=== PATIENT | male | born 1960 | race Caucasian/White ===

== ENCOUNTER 2020-02-10 07:22 | Outpatient (CLI) | payer OTHER ==
[2020-02-11 16:49] LABS: SARS-CoV-2 MS2 Positive; SARS-CoV-2 N Gene Negative; SARS-CoV-2 S Gene Negative; SARS-CoV-2 orf1ab Negative
== END 2020-02-10 07:23 | disposition home or self-care (01) ==
LOC: LABBT 07:22
PROVIDERS: ATTEND Student in an Organized Health Care Education/Training Program
DX: Z01.818 Encounter for other preprocedural examination (principal); Z11.59 Encounter for screening for other viral diseases; J34.2 Deviated nasal septum; J34.3 Hypertrophy of nasal turbinates; G47.33 Obstructive sleep apnea (adult) (pediatric); R06.83 Snoring; J34.89 Other specified disorders of nose and nasal sinuses
CPT/HCPCS: 87635; 93005; 93010; U0003

== ENCOUNTER 2020-02-14 06:01 | Day surgery (SDC) | payer OTHER ==
[2020-02-10 13:45] VITALS: BMI 28.7
[2020-02-14] MEDS ORDERED: AFRIN NASAL MIST 15 ML BOT ONE ×2 (06:35→06:40)
[2020-02-14] MEDS ORDERED: EPINEPHrine 1 MG/ML AMP ONE (06:40)
[2020-02-14] MEDS ORDERED: Bacitracin Zinc Ointment 30 gm TUBE ONE (06:40)
[2020-02-14] MEDS ORDERED: Lidocaine 1% w/Epinephrine 1:100K 20 ML VIAL ONE (06:40)
[2020-02-14] MEDS ORDERED: Fentanyl 100 MCG/2 ML VIAL ONE ×2 (07:51→10:25)
[2020-02-14] MEDS ORDERED: Midazolam HCl 2 mg/2 ml Vial ONE (07:51)
[2020-02-14] MEDS ORDERED: Ondansetron PF 4 MG/2 ML Vial ONE (09:55)
[2020-02-14] MEDS ORDERED: Rocuronium Bromide 10 MG/ML (10ML VIAL) ONE (09:55)
[2020-02-14] MEDS ORDERED: Glycopyrrolate 0.2 MG/ML 5 ML SYRINGE ONE (09:55)
[2020-02-14] MEDS ORDERED: PHENYLEPHRINE-NS 100 MCG/ML 10 ML SYRINGE ONE (09:55)
[2020-02-14] MEDS ORDERED: Dexamethasone 20 MG/5 ML VIAL ONE (09:55)
[2020-02-14] MEDS ORDERED: PROPOFOL 200 MG/20 ML VIAL ONE (09:55)
[2020-02-14] MEDS ORDERED: EPHEDRINE 25 MG/5 ML SYRINGE ONE (09:55)
[2020-02-14] MEDS ORDERED: Succinylcholine Chloride 20 MG/ML 10 ml SYRINGE FS ONE (09:55)
[2020-02-14] MEDS ORDERED: Lidocaine 1% PF 5 ML VIAL ONE (09:55)
[2020-02-14] MEDS ORDERED: hydrALAZINE 20 MG/ML VIAL ONE (10:28)
[2020-02-14] MEDS ORDERED: HYDROcodone/Acetaminophen 5/325 mg Tablet ONE (12:57)
--- NOTE | 2020-02-15 11:19 | OP ---
DATE OF PROCEDURE: 02/14/2020 PREOPERATIVE DIAGNOSES: Septal deviation, turbinate hypertrophy and nasal valve collapse. POSTOPERATIVE DIAGNOSES: Septal deviation, turbinate hypertrophy and nasal valve collapse. PROCEDURES: Septoplasty, submucosal resection of inferior turbinates, and reconstruction of nasal valves. PERMIT: Procedures, benefits and risks including those of bleeding, infection, injury, anesthesia, allergic reaction, scarring necessitating revision or repair and alternatives were reviewed with the patient and family who expressed understanding of the information. A consent form was signed and witnessed and a paper copy of the consent form is available for review in the paper chart. INDICATIONS: Patient presenting to clinic with exam findings of septal deviation, turbinate hypertrophy and severe nasal valve collapse causing persistent nasal congestion and difficulty breathing, which was recalcitrant to medical management and is now brought to the operating room for operative treatment. ASSISTANTS: None. FINDINGS: Severe septal deviation with septal spurs, turbinate hypertrophy and nasal valve collapse. DESCRIPTION OF OPERATION: The patient was brought to the operating room and laid supine on the operating room table. General endotracheal anesthesia was administered and the septum was infiltrated with 1% lidocaine with 1:100,000 epinephrine and 6 Afrin-soaked cottonoids were placed in the bilateral nasal cavities, 3 on each side. The patient was then prepped and draped in a usual fashion. The nose was then evaluated endoscopically. The patient was seen to have a severe septal deviation and septal spurs. At this point, a left Eldridge incision was made followed by elevation of the mucoperichondrial flaps with a combination of a 15 blade, Ryan elevator and the [place]. The cartilaginous aspect of the septum was incised anteriorly, taking care to leave at least a 1.5 cm margin from the anterior septal border. Incision was made along the cartilage and the contralateral mucoperichondrial flap was then elevated as well. At this point, the swivel knife was used to remove the deviated cartilaginous portion of the nasal septum and then evaluation of the bony septum was seen and showed deviation causing obstruction. Double-action scissors were used to cut both superiorly and inferiorly and Alexey's were used to remove the deviated aspects of the septum. The nose was then carefully analyzed bilaterally and it was clear that there was no obstruction from deviation and the remaining cartilaginous portions of the septum that were straight were replaced and a quilting mattress suture was then used to replace the mucoperichondrial flaps together with 4-0 chromic suture on a Deepak needle and the Wil incision was then closed in a running fashion with a 5-0 chromic suture. Next, attention was turned to the bilateral inferior turbinate reductions, which were then performed. Next, a stab incision was made along the anterior inferior head of each inferior turbinates followed by elevation with an elevator. An oscillating debrider was then placed in the pocket and used to remove the erectile tissue from inside the inferior turbinates on both sides thus reducing the size of the inferior turbinates bilaterally. After this was performed, both inferior turbinates were then lateralized and outfractured using a Rowland elevator. At this point, attention was turned to the nasal valve reconstruction. Bilateral nasal valve stenosis and collapse were observed with the endoscope. The left nasal ala was stabilized with a double-prong skin hook and an implant was inserted into the left internal nasal wall at the level of the nasal vibrissae. An implant was then inserted deep to the cartilaginous structures of the nasal ala and the left nasal sidewall and seated superiorly laterally to the nasal bone edge to anchor the left nasal sidewall and prevent collapse. The implant was seated well and palpation of the nasal wall showed good position of the implant. Attention was then turned to the right side and the same procedure was performed. The right nasal ala was stabilized with a double-prong skin hook and an implant was inserted into the right internal nasal wall at the level of the nasal vibrissae. The implant was inserted deep to the cartilaginous structures of the nasal ala and the right nasal sidewall and seated superior lateral to the nasal bone edge to anchor the nasal sidewall and prevent collapse. The implant was seated well and palpation of the nasal wall showed good position of the implant. At this point, the nasal cavity and nose were evaluated with the endoscope and it was clear that there was no deviation or obstruction. Bilateral Ko splints were placed and held with a 2-0 silk suture on the anterior septum. The endoscopes were used to evaluate and showed that the Ko splints were in good place. The patient tolerated the procedure well without complications and the patient was turned back to Anesthesia for emergence. Job ID: [id number]
== END 2020-02-14 13:28 | disposition home or self-care (01) ==
LOC: SDC 06:01
PROVIDERS: ATTEND Student in an Organized Health Care Education/Training Program
DX: J34.2 Deviated nasal septum (principal); J34.3 Hypertrophy of nasal turbinates; J34.89 Other specified disorders of nose and nasal sinuses; G47.33 Obstructive sleep apnea (adult) (pediatric); Z79.899 Other long term (current) drug therapy; Z88.8 Allergy status to other drugs, medicaments and biological substances
CPT/HCPCS: J0171; J0360; J1100; J2001; J2250; J2405; J2704; J3010

== ENCOUNTER 2023-05-18 09:32 | Emergency (ER) | payer BC, OTHER ==
[2023-05-18] MEDS ORDERED: Iopamidol-370 76% 500 ML MDV (1 ML CHARGE) ONE (09:49)
[2023-05-18] MEDS ORDERED: Ondansetron PF 4 MG/2 ML Vial ONE (10:43)
[2023-05-18 10:45] LABS: #Eosinphils 0.1 thou/uL (0.0-0.7); #Monocytes 1.1 thou/uL (0.11-0.59); #Neutrophils 8.5 thou/uL (1.40-6.50); %Basophils 0.2 % (0.0-1.0); %Eosinophils 0.7 % (0.0-10.0); %Monocytes 10.1 % (0.0-10.0); %Neutrophils 76.7 % (42.0-75.0); Hematocrit 48.9 % (42.0-52.0); Hemoglobin 16.4 g/dL (14.0-18.0); Mean Corpuscular HGB CONC 33.5 g/dL (32.0-36.0); Mean Corpuscular Hemoglobin 30.5 pg (27.0-31.0); Mean Corpuscular Volume 91.1 fl (78.0-98.0); Mean Platelet Volume 11.7 fL (7.4-10.4); Platelet Count 186 10x3/uL (130-400); Red Blood Cell (RBC) Count 5.37 mill/uL (4.70-6.10)
[2023-05-18] MEDS ORDERED: Dexamethasone 10 MG/ML VIAL ONE ×2 (10:45→10:51)
[2023-05-18 11:13] LABS: ALT (SGPT) 15 U/L (8-55); AST (SGOT) 18 U/L (5-34); Albumin 4.3 g/dL (3.4-4.8); Alkaline Phosphatase 72 U/L (40-110); Anion Gap 11 mmol/L (10-20); BUN (Urea Nitrogen) 13 mg/dL (8.4-25.7); Bilirubin, Total 0.8 mg/dL (0.2-1.2); Calc. Creatinine Clearance 0 mL/min (70-130); Calcium 9.3 mg/dL (7.8-10.44); Carbon Dioxide 27 mmol/L (23-31); Chloride 104 mmol/L (98-107); Estimated GFR 55; Globulin 3.4 g/dL (2.4-3.5); Glucose 114 mg/dL (80-115); Protein, Total 7.7 g/dL (5.8-8.1); Sodium 138 mmol/L (136-145)
== END 2023-05-18 15:25 | disposition home or self-care (01) ==
LOC: ERS 09:32
DX: U07.1 COVID-19 (principal); I10 Essential (primary) hypertension
CPT/HCPCS: 36415; 70491; 71045; 71275; 80053; 85025; 96374; 96375; J1100; J2405; Q9967

== ENCOUNTER 2023-09-21 13:45 | Outpatient (CLI) | payer OTHER | END 2023-09-21 13:46 | disposition home or self-care (01) | LOC: ULT 13:45 | PROVIDERS: ATTEND Chiropractor | DX: Z48.812 Encounter for surgical aftercare following surgery on the circulatory system (principal); Z95.1 Presence of aortocoronary bypass graft; I08.1 Rheumatic disorders of both mitral and tricuspid valves | CPT/HCPCS: 93306 ==

== ENCOUNTER 2024-01-28 14:02 | Outpatient (CLI) | payer OTHER | END 2024-01-28 14:03 | disposition home or self-care (01) | LOC: BICULT 14:02 | PROVIDERS: ATTEND Urology | DX: N28.9 Disorder of kidney and ureter, unspecified (principal); N39.43 Post-void dribbling | CPT/HCPCS: 76770 ==

== ENCOUNTER 2024-07-13 12:39 | Outpatient (CLI) | payer OTHER ==
[2024-07-13 13:46] LABS: #Basophils 0.03 10x3/uL (0.0-0.2); %Basophils 0.4 % (0.0-1.0); %Eosinophils 3.1 % (0.0-10.0); %Lymphocytes 28.2 % (21.0-51.0); %Monocytes 7.6 % (0.0-10.0); %Neutrophils 60.4 % (42.0-75.0); Hematocrit 53.3 % (42.0-52.0); Hemoglobin 17.7 g/dL (14.0-18.0); Mean Corpuscular HGB CONC 33.2 g/dL (32.0-36.0); Mean Corpuscular Hemoglobin 32.6 pg (27.0-31.0); Mean Corpuscular Volume 98.2 fL (78.0-98.0); Mean Platelet Volume 11.4 fL (7.4-10.4); Platelet Count 179 10x3/uL (130-400); RBC Distribution Width 12.9 % (11.5-14.5); Red Blood Cell (RBC) Count 5.43 mill/uL (4.70-6.10)
[2024-07-13 14:07] LABS: PTT 35.1 sec (22.9-36.1); Prothrombin Time 13.6 sec (12.0-14.7)
[2024-07-13 14:09] LABS: Anion Gap 15 mmol/L (10-20); BUN (Urea Nitrogen) 21 mg/dL (8.4-25.7); Calc. Creatinine Clearance 0 mL/min (70-130); Calcium 9.5 mg/dL (7.8-10.44); Carbon Dioxide 25 mmol/L (23-31); Chloride 103 mmol/L (98-107); Estimated GFR 46; Glucose 118 mg/dL (80-115); Potassium 4.5 mmol/L (3.5-5.1); Sodium 138 mmol/L (136-145)
[2024-07-13 14:33] LABS: Bacteria/HPF None Seen HPF (None Seen); Bilirubin Negative (Negative); Blood, Urine Negative (Negative); Clarity Clear (Clear); Glucose, Urine (Dipstick) Greater than 1000 mg/dL (Negative); Ketone, Urine Negative (Negative); Leukocyte Negative Leu/uL (Negative); Nitrite Negative (Negative); Protein, Urine (Dipstick) Negative (Neg-Trace); RBC/HPF 0-3 HPF (0-3); Squamous Epithelial None Seen HPF (0-3); Urobilinogen Normal mg/dL (Less than 2); WBC/HPF 0-3 HPF (0-3)
== END 2024-07-13 12:40 | disposition home or self-care (01) ==
LOC: LABBT 12:39
PROVIDERS: ATTEND Urology
DX: Z01.818 Encounter for other preprocedural examination (principal); Z12.5 Encounter for screening for malignant neoplasm of prostate; G47.33 Obstructive sleep apnea (adult) (pediatric); I25.10 Atherosclerotic heart disease of native coronary artery without angina pectoris; N28.9 Disorder of kidney and ureter, unspecified; R71.8 Other abnormality of red blood cells; N40.1 Benign prostatic hyperplasia with lower urinary tract symptoms; R35.0 Frequency of micturition; R79.89 Other specified abnormal findings of blood chemistry
CPT/HCPCS: 80048; 81001; 85025; 85610; 85730; 87086; 93005; 93010

== ENCOUNTER 2024-07-21 14:59 | Outpatient (CLI) | payer OTHER | END 2024-07-21 15:00 | disposition home or self-care (01) | LOC: ULT 14:59 | DX: N18.9 Chronic kidney disease, unspecified (principal) | CPT/HCPCS: 76770 ==

== ENCOUNTER 2024-07-27 08:01 | Inpatient (IN) | payer OTHER ==
[2024-07-27] MEDS ORDERED: Famotidine/PF 20 mg/2ml Vial ONE (10:33)
[2024-07-27] MEDS ORDERED: LevoFLOXacin D5W 500 mg (100 mL) BAG ONE (10:57)
[2024-07-27] MEDS ORDERED: Lidocaine 1% MPF 2 ML VIAL ONE (10:57)
[2024-07-27] MEDS ORDERED: PROPOFOL 20 ML ONE (11:27)
[2024-07-27] MEDS ORDERED: fentaNYL PF 100 MCG/2 ML SYRINGE ONE (11:27)
[2024-07-27] MEDS ORDERED: Rocuronium Bromide 10 MG/ML (10ML VIAL) ONE (11:28)
[2024-07-27] MEDS ORDERED: Lidocaine 2% PF 5 ML VIAL ONE (11:28)
[2024-07-27] MEDS ORDERED: ePHEDrine Sulfate 50 MG/10 ML VIAL ONE (11:56)
[2024-07-27] MEDS ORDERED: Nitroglycerin 2% Ointment 1 INCH/1 GM Packet ONE (12:15)
[2024-07-27] MEDS ORDERED: Ondansetron PF 4 MG/2 ML Vial ONE (12:18)
[2024-07-27] MEDS ORDERED: SUGAMMADEX SODIUM 200 MG/2 ML VIAL ONE (12:19)
[2024-07-27] MEDS ORDERED: PHENYLEPHRINE-NS 100 MCG/ML 10 ML SYRINGE ONE (12:50)
[2024-07-27] MEDS ORDERED: fentaNYL 50 mcg/mL 1 mL Vial ONE (13:18)
[2024-07-27] MEDS ORDERED: Vasopressin 20 UNITS/ML VIAL ONE (13:40)
[2024-07-27] MEDS ORDERED: Promethazine HCl 25 MG/ML VIAL IM PRN (13:47)
[2024-07-27] MEDS ORDERED: Vasopressin 20 UNITS/ML VIAL IV PRN (13:47)
[2024-07-27] MEDS ORDERED: Ondansetron HCl/PF 4 MG/2 ML Vial IVP PRN (13:47)
[2024-07-27] MEDS ORDERED: Dextrose 5% in Water 1,000 ML IV PRN (13:52)
[2024-07-27] MEDS ORDERED: Glucagon 1 MG/ML KIT IM PRN (13:52)
[2024-07-27] MEDS ORDERED: Insulin Regular, Human 100 UNIT/ML 10 ML VIAL SC PRN (13:52)
[2024-07-27] MEDS ORDERED: diphenhydrAMINE 50 MG/ML VIAL IVP PRN (13:52)
[2024-07-27] MEDS ORDERED: Morphine 2 MG/ML VIAL SLOW IVP PRN (13:52)
[2024-07-27] MEDS ORDERED: Mag-Al 1200 mg/1200 mg/30 ML UDCUP PO PRN (13:52)
[2024-07-27] MEDS ORDERED: hydrALAZINE 20 MG/ML VIAL SLOW IVP PRN (13:52)
[2024-07-27] MEDS ORDERED: HYDROcodone/Acetaminophen 5/325 mg Tablet PO PRN (13:52)
[2024-07-27] MEDS ORDERED: Ondansetron PF 4 MG/2 ML Vial IVP PRN (13:52)
[2024-07-27] MEDS ORDERED: Dextrose 50% Abboject 50 ML SYRINGE SLOW IVP PRN (13:52)
[2024-07-27] MEDS ORDERED: Non-Formulary Item 1 EACH (Tadalafil [Tadalafil] 5 MG Tablet) PO PRN (13:57)
[2024-07-27] MEDS ORDERED: Colchicine 0.3 MG TAB PO PRN (13:57)
[2024-07-27] MEDS ORDERED: Non-Formulary Item 1 EACH (Semaglutide [Ozempic] 0.25 MG/0.368 ML Pen.Injctr) SQ SCH (14:00)
[2024-07-27] MEDS ORDERED: Hyoscyamine SL 0.125 MG TAB ONE (14:25)
[2024-07-27 14:43] LABS: #Basophils Less than 0.03 10x3/uL (0.0-0.2); %Basophils 0.2 % (0.0-1.0); %Eosinophils 1.1 % (0.0-10.0); %Lymphocytes 20.6 % (21.0-51.0); %Monocytes 5.2 % (0.0-10.0); %Neutrophils 72.7 % (42.0-75.0); Hematocrit 41.1 % (42.0-52.0); Hemoglobin 13.8 g/dL (14.0-18.0); Mean Corpuscular HGB CONC 33.6 g/dL (32.0-36.0); Mean Corpuscular Hemoglobin 32.9 pg (27.0-31.0); Mean Corpuscular Volume 98.1 fL (78.0-98.0); Mean Platelet Volume 11.1 fL (7.4-10.4); Platelet Count 131 10x3/uL (130-400); RBC Distribution Width 12.5 % (11.5-14.5); Red Blood Cell (RBC) Count 4.19 mill/uL (4.70-6.10)
[2024-07-27 14:50] LABS: Anion Gap 10 mmol/L (10-20); BUN (Urea Nitrogen) 18 mg/dL (8.4-25.7); Calc. Creatinine Clearance 0 mL/min (70-130); Calcium 6.7 mg/dL (7.8-10.44); Carbon Dioxide 18 mmol/L (23-31); Chloride 116 mmol/L (98-107); Estimated GFR 71; Glucose 93 mg/dL (80-115); Potassium 4.4 mmol/L (3.5-5.1); Sodium 140 mmol/L (136-145)
[2024-07-27] MEDS ORDERED: Calcium Chloride 1 GM/10 ML Abboject SYRINGE ONE (14:59)
[2024-07-27 16:41] VITALS: BMI 29.4
[2024-07-27] MEDS: Hyoscyamine SL 0.125 MG TAB SL SCH (17:37)
[2024-07-27] MEDS: Sodium Chloride 0.9% 1,000 ML IV SCH (17:37)
[2024-07-27] MEDS: Zolpidem Tartrate 5 MG TAB PO PRN (20:21)
[2024-07-27] MEDS: Allopurinol 100 MG TAB PO SCH (20:21)
[2024-07-27] MEDS: Gabapentin 300 MG CAP PO SCH (20:22)
[2024-07-27] MEDS: Ranolazine ER 500 MG TAB PO SCH (20:22)
[2024-07-27] MEDS: Famotidine/PF 20 mg/2ml Vial SLOW IVP SCH (20:23)
[2024-07-27] MEDS: Atorvastatin Calcium 40 MG TAB PO SCH (20:23)
[2024-07-27] MEDS: Docusate 100 MG CAP PO SCH (20:23)
[2024-07-27] MEDS: Icosapent Ethyl 1 GM CAPSULE PO SCH (20:23)
[2024-07-27] MEDS: HYDROcodone/Acetaminophen 5/325 mg Tablet PO PRN (21:56)
[2024-07-28] MEDS: cefTRIAXone\\ROCEPHIN 1 GM in Sodium Chloride 0.9% 100 ML IVPB SCH (05:11)
[2024-07-28 05:33] LABS: Anion Gap 8 mmol/L (10-20); BUN (Urea Nitrogen) 16 mg/dL (8.4-25.7); Calc. Creatinine Clearance 74 mL/min (70-130); Carbon Dioxide 21 mmol/L (23-31); Chloride 112 mmol/L (98-107); Estimated GFR 61; Glucose 99 mg/dL (80-115); Potassium 4.2 mmol/L (3.5-5.1); Sodium 137 mmol/L (136-145)
[2024-07-28 05:44] LABS: #Basophils Less than 0.03 10x3/uL (0.0-0.2); %Basophils 0.2 % (0.0-1.0); %Eosinophils 1.6 % (0.0-10.0); %Lymphocytes 23.4 % (21.0-51.0); %Neutrophils 65.6 % (42.0-75.0); Hematocrit 41.7 % (42.0-52.0); Mean Corpuscular HGB CONC 33.6 g/dL (32.0-36.0); Mean Corpuscular Hemoglobin 32.6 pg (27.0-31.0); Mean Platelet Volume 11.1 fL (7.4-10.4); Platelet Count 138 10x3/uL (130-400); RBC Distribution Width 12.5 % (11.5-14.5)
[2024-07-28] MEDS: Dapagliflozin Propanediol 10 MG TAB PO SCH (09:24)
[2024-07-28] MEDS: Dutasteride 0.5 MG CAP PO SCH (09:24)
[2024-07-28] MEDS: Tamsulosin HCl 0.4 MG CAP PO SCH (09:25)
[2024-07-28] MEDS: FLU (Fluad Triv) TS24-25 (65UP)/MF59C/PF 45 MCG/0.5 ML Syringe IM ONE (15:59)
[2024-07-28 16:21] VITALS: TEMP 98.5
== END 2024-07-28 17:20 | disposition home or self-care (01) | DRG 714 ==
LOC: SDC 08:01 → IMCU/EMU 13:52
PROVIDERS: ADMIT Urology; ATTEND Urology
PROC: 0VB08ZZ Excision of Prostate, Via Natural or Artificial Opening Endoscopic (ICD-10-PCS; principal; 2024-07-27)
DX: N40.1 Benign prostatic hyperplasia with lower urinary tract symptoms (principal); Z88.8 Allergy status to other drugs, medicaments and biological substances; Z79.899 Other long term (current) drug therapy; M10.9 Gout, unspecified; E78.5 Hyperlipidemia, unspecified; I10 Essential (primary) hypertension; Z98.890 Other specified postprocedural states
CPT/HCPCS: 36415; 36416; 80048; 85025; 86850; 86900; 86901; 88305; 90653; A4333; J0696; J1956; J2405; J2704; J3010; J3490; J7030

== ENCOUNTER 2024-10-03 02:03 | Emergency (ER) | payer OTHER ==
[2024-10-03] MEDS ORDERED: Lidocaine 1% PF 5 ML VIAL ONE (03:52)
[2024-10-03] MEDS ORDERED: Boostrix 0.5 ML (Tdap) VIAL (>/=7 yrs of age) ONE (03:55)
== END 2024-10-03 04:39 | disposition home or self-care (01) ==
LOC: ERS 02:03
DX: S61.212A Laceration without foreign body of right middle finger without damage to nail, initial encounter (principal); I10 Essential (primary) hypertension; I25.10 Atherosclerotic heart disease of native coronary artery without angina pectoris; Z23 Encounter for immunization; W26.8XXA Contact with other sharp object(s), not elsewhere classified, initial encounter; Y93.89 Activity, other specified
CPT/HCPCS: 12001; 90471; 90715